=== PATIENT | female | born 1940 | race Caucasian/White ===

== ENCOUNTER → 2020-08-05 | Outpatient (CLI) | payer MEDICARE ==
[~2020-08-05] MED LIST: ACETAMINOPHEN325 M1 PO; AMITRIPTYLINE H25 MG PO; ATORVASTATIN CA10 MG PO; CALCIUM600 MG PO; CARAFATE1 GM/10 ML PO; DONEPEZIL HCL5 M1 PO; GUAIFENESIN400 MG PO; HYDROXYZINE HCL25 MG PO; ISOSORBIDE MONO30 MG PO; Lipitor PO; OMEPRAZOLE40 MG PO; PSEUDOEPHEDRIN120 MG PO; RANEXA500 MG PO; SYMBICORT 16010.2 GM INH; TESSALON200 MG PO; TRAMADOL HCL50 MG PO; VITAMIN C500 MG PO; VITAMIN E OIL-V52 M2 PO; Z.0.ASPIRIN CHEW81 M PO; Z.0.CRESTOR5 MG PO; Z.0.PAXIL40 MG PO; Z.0.PLAVIX75 MG PO; [UNRECOGNIZED DRUG - OTHER]
--- NOTE | 2020-08-05 10:11 | Diagnostic Imaging Report ---
Chest, 2 views, 08/04/2020. History: Pneumonia. Comparison: None available. Findings: The cardiomediastinal silhouette and pulmonary vasculature are within normal limits. Patchy consolidation is present throughout the right lung and left lung base. There is no evidence of pleural effusion. Median sternotomy wires are present. Degenerative changes are noted throughout the thoracic spine. There are no acute osseous or soft tissue abnormalities. Impression: Bilateral pneumonia, right worse than left. Signed by: Kadeem Nelson on 08/05/2020 10:08 AM
== END ==
LOC: RAD 09:16
PROVIDERS: ATTEND Family Medicine
DX: Z09 Encounter for follow-up examination after completed treatment for conditions other than malignant neoplasm (principal); J18.9 Pneumonia, unspecified organism
CPT/HCPCS: 71046

== ENCOUNTER → 2020-08-13 | Outpatient (CLI) | payer MEDICARE ==
--- NOTE | 2020-08-13 14:08 | Diagnostic Imaging Report ---
Exam: CHEST 2 VIEWS Date: 08/13/2020 2:04 PM INDICATION: ^[id number] ^[id number] ^PNEUMONIA FOLLOW UP Comparison: 08/05/2020 FINDINGS: Lines/Tubes:None Lungs:Interval improvement in the right mid lung and lower lobe airspace opacities. Residual multifocal opacities are still noted. Stable linear scarring at the left lung base. Pleura:No pleural effusion. No pneumothorax. Heart/Mediastinum:The cardiomediastinal silhouette is normal in size and contour. Bones/Soft Tissues: No acute osseous abnormality. Upper abdomen: Unremarkable. IMPRESSION: Improved. Residual right mid lung and lower lobe opacities which could relate to resolving infection. Stable left lower lobe scarring. Recommend continued follow-up to resolution. Signed by: Asael Sierra MD on 08/13/2020 2:05 PM
== END ==
LOC: RAD 13:22
PROVIDERS: ATTEND Family Medicine
DX: Z09 Encounter for follow-up examination after completed treatment for conditions other than malignant neoplasm (principal); J18.9 Pneumonia, unspecified organism
CPT/HCPCS: 71046

== ENCOUNTER 2025-05-19 14:12 | Emergency (ER) | payer MEDICARE ==
[~2025-05-19] VITALS: Ht 160 cm; Wt 83.9 kg
[~2025-05-19 14:12] MED LIST changes: +CEFDINIR300 MG PO; +PROBIOTIC & AC1 EACH PO; +PYRIDIUM100 MG PO
[2025-05-19 14:44] LABS: BASOPHILS % 0.6 % (0.0-1.0); EOSINOPHILS % 4.8 % (0.0-6.0); LYMPHOCYTES % 21.7 % (18.0-39.1); MONOCYTES % 8.9 % (4.4-11.3); NEUTROPHILS % 62.9 % (38.7-80.0); RED CELL DISTRIBUTION WIDTH 13.6 % (11.7-14.4)
[2025-05-19 14:56] LABS: INR 0.89
[2025-05-19 15:05] LABS: EST GLOMERULAR FILTRATION RATE 64.0 ML/MIN (>=60)
[2025-05-19] MEDS ORDERED: IOPAMIDOL 370 MG/ML 100 ML INFUS..BTL INJ ONE (17:04)
[2025-05-19 20:47] VITALS: PULSE 72; RESP 18; TEMP 99.2; O2SAT 98
== END 2025-05-19 20:51 | disposition other institution (70) ==
LOC: ER 14:21
DX: K92.2 Gastrointestinal hemorrhage, unspecified (principal); E78.5 Hyperlipidemia, unspecified; N32.81 Overactive bladder; R01.1 Cardiac murmur, unspecified; R94.31 Abnormal electrocardiogram [ECG] [EKG]; Z95.5 Presence of coronary angioplasty implant and graft; Z86.79 Personal history of other diseases of the circulatory system; Z85.828 Personal history of other malignant neoplasm of skin
CPT/HCPCS: 36415; 74177; 80053; 85025; 85610; 85730; 86850; 86900; 93005; 99284; J2470; Q9967